=== PATIENT | female | born 1945 | race Hispanic/Latino ===

== ENCOUNTER 2021-10-25 21:37 | Emergency (ER) | payer OTHER ==
--- OUTSIDE RECORDS SUMMARY | 2021-10-25 21:40 | XMS REPORT | Clinical Summary ---
:1945 Author Organization [facility] MD [facility] Address [address] [place] [address] Care Team Providers Name Role Phone John Jacobo MD Primary Care Provider Natalya Cabrera MD Unavailable Nighat Mayen MD Unavailable Pete Funez MD Unavailable Allergies Active Allergy Reactions Severity Noted Date Comments Adhesive Tape-Silicones 10/17/2021 Medications Medication Sig Dispensed Refills Start Date End Date Status traMADol (ULTRAM) 50 Take 50 mg by 0 Active mg tablet mouth every 8 (eight) hours as needed. metFORMIN Take 1,000 mg by 0 Act dodie (GLUCOPHAGE) 1000 mg mouth daily with tablet breakfast. glimepiride (AMARYL) Take 4 mg by mouth 0 Active 4 mg tablet every morning before breakfast. HYDROcodone-acetamino Take 2 tablets by 30 tablet 0 10/18/2021 Active phen (Bristow) 5 mg-325 mouth every 6 mg per (six) hours as tabletIndications: needed for Malignant neoplasm of moderate pain. vagina ibuprofen Take 1 tablet (400 30 tablet 0 10/18/2021 Active (ADVIL,MOTRIN) 400 mg mg) by mouth every tabletIndications: 8 (eight) hours as Malignant neoplasm of needed for mild vagina pain. gabapentin Take 1 capsule 30 capsule 0 10/18/2021 Ac tive (Neurontin) 400 mg (400 mg) by mouth capsuleIndications: at bedtime. Malignant neoplasm of vagina lidocaine (XYLOCAINE) Apply topically to 30 g 0 Active 5% affected area(s) 4 ointmentIndications: (four) times a day Malignant neoplasm of as needed for mild vagina pain. Apply to open sores levoFLOXacin Take 1 tablet (750 10 tablet 0 10/18/2021 Active (Levaquin) 750 mg mg) by mouth tabletIndications: daily. Bacteriuria Active Problems Not on file Encounters Date Type Specialty Care Team Description 10/20/2021 Telephone Mariano Monisha Discharge C ricky Childers RN 10/17/2021 - Emergency Emergency Medicine Travon Vargas MD Mal ignant neoplasm of vagina; 10/18/2021 Bacteriuria 10/17/2021 Travel after 10/25/2020 Immunizations Name Administration Dates Next Due Moderna SARS-CoV-2 Vaccination 08/10/2021, 12/02/2020, 11/04 Medical History Medical History Date Comments Type 2 diabetes mellitus not insulin dep endent Obesity Hypertension Hyperlipidemia Social History Tobacco Use Types Packs/Day Years Used Date Never Assessed Sex Assigned at Date Recorded Female 09/06/2021 3:00 PM [employer] Job Start Date Occupation Industry Not on file Not on file Not on file COVID-19 Exposure Response Date Recorded In the last month, have you been in contact with No / Unsure 10/17/2021 9:10 PM [employer] someone who was confirmed or suspected to have Coronavirus / COVID-19? Obstetrics History Last Filed Vital Signs Vital Sign Reading Time Taken Comments Blood Pressure 154/71 10/18/2021 1:00 AM [employer] Pulse 87 10/18/2021 1:00 AM [employer] Temperature 36.5 C (97.7 F) 10/18/2021 1:00 AM [employer] Respiratory Rate 18 10/18/2021 1:00 AM [employer] Oxygen Saturation 97% 10/18/2021 1:00 AM [employer] Inhaled Oxygen Concentration - - Weight - - Height - - Body Mass Index - - Plan of Treatment Not on file Procedures Procedure Name Priority Date/Time Associated Comments Diagnosis XR CHEST 1 VW STAT 10/17/2021 10:08 Results fo r this PM [employer] procedure are i n the results section. URINALYSIS WITH Routine 10/17/2021 9:32 Results for this MICROSCOPIC IF PM [employer] procedure are in INDICATED the results section. URINALYSIS Now 10/17/2021 9:32 Results for this MICROSCOPIC PM [employer] procedure are i n the results section. after 10/25/2020 Results X-ray Chest 1 View (10/17/2021 10:08 PM [employer]) Specimen Impressions [id number] - 10/18/2021 6:46 AM [employer]IST 1. Small left pleural effusion and mild left basilar lung radiopacities, likely compressive atelectasis and/or pneumonia. 2. Left IJ Port-A-Cath with its tip in upper SVC. No complication. I personally reviewed these image(s) jon ng with the resident's/fellow's interpretations, certify that if a procedure was performed I was physically present, and agree with the final report. Narrative [id number] - 10/18/2021 6:46 AM RE[employer]ION [employer]IST FULL RESULT: Examination: XR Chest, 1 View Portable, 10/17/2021 10:08 PM Clinical History: Vulvar cancer. Indication: Baseline study. Comparison: None. Technique: Portable AP chest, 10/17/2021. Findings: A left IJ Port-A-Cath has its tip in the upper SVC. A small left pleural effusion and mild left lower lung radiopacities behind the heart are seen. The right lung is clear. The heart is at the upper wahl its are normal in size with a tortuous a kirk. Degenerative changes are present in the thoracic spine. Procedure Note Ajay Dwyer MD - 10/18/2021 FULL RESULT: Examination: XR Chest, 1 View Portable, 10/17/2021 10:08 PM Clinical History: Vulvar cancer. Indication: Baseline study. Comparison: None. Technique: Portable AP chest, 10/17/2021. Findings: A left IJ Port-A-Cath has its tip in the upper SVC. A small left pleural effusion and mild left lower lung radiopacities behind the heart are seen. The right lung is clear. The heart is at the upper limits are normal in size with a tortuous aorta. Degenerative changes are present in the thoracic spine. IMPRESSION: 1. Small left pleural effusion and mild left basilar lung radiopacities, likely compressive atelectasis and/or pneumonia. 2. Left IJ Port-A-Cath with its tip in upper SVC. No complication. I personally reviewed these image(s) jon azevedo with the resident's/fellow's interpretations, certify that if a procedure was performed I was physically present, and agree with the final report. Performing Organization Address City/State/ZIP Code Phon e Number [id number] Urinalysis with Microscopic (10/17/2021 9:32 PM RECEPTION SPECIALIST) Pathologist Sig nature UA WBC 2 0 - 2 /HPF [facility] UA RBC <1 0 - 2 /HPF [facility] UA Mucous NOT SEEN Not Seen-Trace /HPF [facility] UA Bacteria NOT SEEN NOT SEEN /HPF [facility] UA Squam Epi OCC None-Occasional [facility] Specimen Urine Narrative [facility] - 2 12:46 AM RECEPTION SPECIALIST Some reporting parameters within the Urinalysis test have changed due to the implementation of new in strumentation in the [facility], bernadine azevedo greater sensitivity of measurement. Urinalysis results reported by the [facility] using existing instrumentation, as well as Urinalysis t esting performed manually or by backup methodology at the [facility] will remain relatively unchanged. New reporting parameters and units will now be reported for all campuses. Performing Organization Address City/State/ZIP Code Phon e Number [facility] Unless otherwise noted, [place] [address] [place] all lab tests performed by: Division of Pathology and Laboratory Medicine [address] [place] [address] [place] (ABNORMAL) Urinalysis w/Microscopic if Indicated (10/17/2021 9:32 PM RECEPTION SPECIALIST) Pathologist Sig nature UA Color Yellow Straw-Yellow [facility] UA Appear Hazy (A) Clear [facility] UA Glucose NEG NEG mg/dL [facility] UA Bili NEG NEG [facility] UA Ketones NEG NEG mg/dL [facility] UA Spec Grav 1.026 1.003 - 1.035 [facility] UA Blood NEG NEG [facility] UA pH 5.0 5.0 - 9.0 [facility] UA Protein 30 (A) NEG mg/dL [facility] UA Urobilinogen NEG NEG [facility] UA Nitrite POS (A) NEG [facility] UA Leuk Est NEG NEG [facility] Specimen Urine Performing Organization Address City/State/ZIP Code Phon e Number [facility] Unless otherwise noted, [place] [address] [place] all lab tests performed by: Division of Pathology and Laboratory Medicine RodriguezNicko [place] after 10/25/2020 Insurance Payer Benefit Plan / Subscriber ID Effective Phone Address T ype Group Dates [facility] MEDIC[facility] [id number] 2021-Prese [address] [address] Medicare HEALTHCARE ADVANTAGE nt [place], [place] [id number] Care Teams Locker Operator Relationship Specialty Start Date End Date Glenn Jacobo, PCP - General Gynecological Oncology 08/22/21 [place] [address] Vicente Cabrera, PCP - External Primary Family Practice 08/22/21 MD Care Provider [address] [place] [address] [id number] Musa Mayen PCP - External Follow Hematology and Oncology MD Nighat [address] [place] [address] Davi Funez, PCP - External Follow Radiation Oncology 08/22/21 [address] [place] [address]
--- OUTSIDE RECORDS SUMMARY | 2021-10-25 21:41 | XMS REPORT | Continuity of Care Document ---
:1945 Author Organization [facility] t Address [address] [place] [address] Care Team Providers Name Role Phone [phone] Primary Care Physician Unavailable SYSTEM, PROVIDER NOT IN Attending Clinician Unavailable Mariano SORIANO, K Attending Clinician Unavailable Scott PATTERSON Attending Clinician SCOTT Attending Clinician Unavailable Payers Payer Name Policy Type Policy Effective Date Expiration Date Sour ce Number [facility] [id number] 2021 MD Emanuel orozco MEDICARE 00:00:00 [facility] MEDICARE [id number] 2021-[place] [address], [place] [address]Medicare Problems This patient has no known problems. Allergies, Adverse Reactions, Alerts This patient has no known allergies or adverse reactions. Social History Social Habit Start Date Stop Date Quantity Comments Source Exposure to Not sure MD Baez SARS-CoV-2 (event) Sex Ass[birth year] At [birth year] F MD Baez 00:00:00 00:00:00 Medications Ordered Filled Start Stop Current Ordering Indication Dosage Frequency Signature Comments Components Source Medication Medication Date Date Medication? Clinician (SIG) Name Name metFORMIN Yes 1000mg Take 1,000 MD (GLUCOPHAGE 1-12 mg by Anderso ) 1000 mg 01:39: mouth n tablet 44 daily with breakfast. glimepiride Yes 4mg Take 4 mg M D (AMARYL) 4 1-12 by mouth Stone so mg tablet 01:39: every n 44 morning before breakfast. traMADol Yes 50mg Take 50 mg MD (ULTRAM) 50 1-12 by mouth Emanuel rso mg tablet 01:39: every 8 n 44 (eight) hours as needed. HYDROcodone Yes Malignant 2{tbl} Take 2 MD -acetaminop 1-12 neoplasm of tablets by Anderso hen (Snyder) 00:00: vagina mouth n 5 mg-325 mg 00 every 6 per tablet (six) hours as needed for moderate pain. ibuprofen Yes Malignant 400mg Take 1 MD (ADVIL,MOTR 1-12 neoplasm of tablet Anderso [place]) 400 mg 00:00: vagina (400 mg) n tablet 00 by mouth every 8 (eight) hours as needed for mild pain. gabapentin Yes Malignant 400mg Take 1 MD (Neurontin) 1-12 neoplasm of capsule Anderso 400 mg 00:00: vagina (400 mg) n capsule 00 by mouth at bedtime. lidocaine Yes Malignant Apply MD (XYLOCAINE) 12 neoplasm of topically Anderso 5% ointment 00:00: vagina to n 00 affected area(s) 4 (four) times a day as needed for mild pain. Apply to open sores levoFLOXaci Yes Bacteriuria 750mg Take 1 MD n 1-12 tablet Anderso (Levaquin) 00:00: (750 mg) n 750 mg 00 by mouth tablet daily. Immunizations Ordered Immunization Filled Immunization Date Status Commen ts Source Name Name Jassia SARS-CoV-2 2021-08-10 Completed MD And erson Vaccination 00:00:00 Moderna SARS-CoV-2 2020-12-02 Completed MD And erson Vaccination 00:00:00 Moderna SARS-CoV-2 2020-11-04 Completed MD And erson Vaccination 00:00:00 Vital Signs Vital Name Observation Time Observation Value Comments Source Systolic blood pressure 2021-10-18 07:00:00 154 mm[Hg] MD Baez Diastolic blood pressure 2021-10-18 07:00:00 71 mm[Hg] MD Baez Heart rate 2021-10-18 07:00:00 87 /min MD Stone blankenship Body temperature 2021-10-18 07:00:00 36.5 Soha MD Natalya valdes Respiratory rate 2021-10-18 07:00:00 18 /min MD Natalya valdes Oxygen saturation in 2021-10-18 07:00:00 97 /min MD Baez Arterial blood by Pulse oximetry Procedures Procedure Date / Time Performed Performing Clinician Sourc e XR CHEST 1 VW 2021-10-18 04:08:28 Kelby Vargas MD URINALYSIS MICROSCOPIC 2021-10-18 03:32:00 Kelby Vargas MD derson URINALYSIS WITH MICROSCOPIC IF 2021-10-18 03:32:00 Srinath Vargsa MD INDICATED Encounters Start End Encounter Admission Attending Care Care Encounter Source Date/Time Date/Time Type Type Clinicians Facility Department ID 2021-10-09 Outpatient SYSTEM, [facility] [id number] 17:04:03 PROVIDER Anton o cortez 2021-09-04 Outpatient SYSTEM, [facility] [id number] 15:10:08 PROVIDER Anton o n 2021-10-17 2021-10-18 Emergency UR SCOTT, [facility] Emergency [id number] 20:02:00 01:40:00 KELBY toro Results Test Description Test Time Test Comments Results Result Comments Source Urinalysis with Microscopic 2021-10-18 06:46:24 Test Item Value Reference Range Interpretation Comme nts UA WBC (test code 2 See_Comment [Automate d message] The = 7904) system which ge nerated this result tra nsmitted reference range : 0 - 2 /HPF. The refer ence range was not u sed to interpret this result as normal/abnormal . UA RBC (test code <1 See_Comment [Automate d message] The = 7891) system which ge nerated this result tra nsmitted reference range : 0 - 2 /HPF. The refer ence range was not u sed to interpret this result as normal/abnormal . UA Mucous (test NOT SEEN Not Seen-Trace /HPF code = 7887) UA Bacteria (test NOT SEEN NOT SEEN /HPF code = 7870) UA Squam Epi OCC None-Occasional (test code = /HPF 7896) CHRISTOPHE (test code = Some reporting CHRISTOPHE) parameters within the Urinalysis test have changed due to the implementation of new instrumentation in the [facility] [place], allowing greater sensitivity of measurement. Urinalysis results reported by the [facility] using existing instrumentation, as well as Urinalysis testing performed manually or by backup methodology at the [facility] [place] will remain relatively unchanged. New reporting parameters and units will now be reported for all campuses. MD BaezUrinalysis w/Microscopic if [id number] 06:39:20 Test Item Value Reference Range Interpretation Comments UA Color (test code = 7877) Yellow Straw-Yellow UA Appear (test code = 7868) Hazy Clear A UA Glucose (test code = 7881) NEG NEG mg/dL UA Bili (test code = 7871) NEG NEG UA Ketones (test code = 7884) NEG NEG mg/dL UA Spec Grav (test code = 7894) 1.026 1.003-1.035 UA Blood (test code = 7872) NEG NEG UA pH (test code = 7909) 5.0 5.0-9.0 UA Protein (test code = 7890) 30 mg/dL NEG A UA Urobilinogen (test code = 7903) NEG NEG UA Nitrite (test code = 7888) POS NEG A UA Leuk Est (test code = 7886) NEG NEG Lab Interpretation (test code = Abnormal 53375-5) MD Baez
--- NOTE | 2021-10-26 00:01 | ER ---
Nurse's Notes [facility] Name: Shannen Cabrera Age: 76 yrs Sex: Female : 1945 Arrival Date: 10/25/2021 Time: 21:38 Bed 14 Private MD: Diagnosis: Strain of muscle, fascia and tendon at neck level, initial encounter;Contusion of left upper arm;Contusion of right upper arm;Contusion of left front wall of thorax, initial encounter;Contusion of right front wall of thorax, initial encounter Presentation: 10/25 21:48 Chief complaint: Chief complaint: Parent and/or Guardian states: fall from standing in [facility] shower tonight, no LOC, no blood thinners, complaining of R arm pain and R sided rib pain, pain gets worse when she breathes in. 21:54 Care prior to arrival: None. Mechanism of Injury: Fall from standing position. Trauma [facility] event details: Injury occurred: at home. Injury occurred: October 25, 2021 Injury occurred at: 21:00. 21:54 Acuity: BUD 3 [facility] 21:54 Method Of Arrival: Wheelchair [facility] 10/26 00:52 Coronavirus screen: Vaccine status: Patient reports receiving the 2nd dose of the covid sv1 vaccine. Ebola Screen: No symptoms or risks identified at this time. Initial Sepsis Screen: Does the patient meet any 2 criteria? No. Patient's initial sepsis screen is negative. Initial Sepsis Screen: Does the patient have a suspected source of infection? No. Patient's initial sepsis screen is negative. Initial Sepsis Screen: Does the patient have a suspected source of infection? No. Patient's initial sepsis screen is negative. Risk Assessment: Do you want to hurt yourself or someone else? Patient reports no desire to harm self or others. Onset of symptoms was October 23, 2021. Trauma Activation: Physician: ED Physician; Name: Dr. Diaz; Notified At: 21:52; Arrived At: 21:52 Physician: General Surgeon; Name: ; Notified At: 21:52; Arrived At: Physician: Radiology; Name: ; Notified At: 21:52; Arrived At: Physician: Respiratory; Name: ; Notified At: 21:52; Arrived At: Physician: Lab; Name: ; Notified At: 21:52; Arrived At: Historical: - Allergies: 00:53 No Known Allergies; sv1 - Immunization history: Last tetanus immunization: - up to date. - Social history:: Smoking status: Patient denies any tobacco usage or history of. - Family history:: not pertinent. - Hospitalizations: : No recent hospitalization is reported. Screenin/19 22:02 Abuse screen: Denies threats or abuse. Tuberculosis screening: No symptoms or risk sv1 factors identified. 10/26 00:49 Nutritional screening: No deficits noted. Fall Risk Fall in past 12 months (25 points). sv1 Secondary diagnosis (15 points) No IV (0 pts). Ambulatory Aid- None/Bed Rest/Nurse Assist (0 pts). Gait- Normal/Bed Rest/Wheelchair (0 pts) Mental Status- Oriented to own ability (0 pts). Primary Survey: 00:51 NO uncontrolled hemorrhage observed. A: Airway: patent. Breathing/Chest: Respiratory sv1 pattern: regular. Circulation: Pulses: palpable . Disability Alert. Reassessment Airway Airway Patent Breathing/Chest Respiratory pattern Regular Circulation Heart rhythm Sinus rhythm Disability Alert. 00:54 Exposure/Environment: There is no evidence of uncontrolled external bleeding. No sv1 obvious injuries are noted at this time. A warming method has been applied: A warm blanket has been provided to the patient. none. Assessment: 10/25 22:02 General: Appears in no apparent distress. General: Behavior is calm, cooperative, sv1 anxious. Pain: Denies pain. Vital Signs: 21:55 BP 172 / 68; Pulse 63; Resp 18; Pulse Ox 98% on R/A; Pain 9/10; sm5 10/26 00:49 BP 153 / 57; Pulse 60; Resp 14; Pulse Ox 98% ; Pain 3/10; sv1 [place] Coma Score: 10/25 21:55 Eye Response: spontaneous(4). Verbal Response: oriented(5). Motor Response: obeys sm5 commands(6). Total: 15. Trauma Score (Adult): 21:55 Eye Response: spontaneous(1); Verbal Response: oriented(1); Motor Response: obeys sm5 commands(2); Systolic BP: > 89 mm Hg(4); Respiratory Rate: 10 to 29 per min(4); [place] Score: 15; Trauma Score: 12 ED Course: 21:38 Patient arrived in ED. [facility] 21:50 Alicia Valle, RN is Primary Nurse. [facility] 21:50 Tristan Diaz MD is Attending Physician. rn 21:55 Froylan Springer, RN is Primary Nurse. sv1 21:55 Triage completed. sm5 22:02 Patient has correct armband on for positive identification. Bed in low position. Call sv1 light in reach. Side rails up X2. Adult w/ patient. 22:49 CT Head C Spine In Process Unspecified. EDMS 23:11 XRAY Ribs BILATERAL w/chest In Process Unspecified. EDMS 23:11 XRAY Humerus LEFT In Process Unspecified. EDMS 23:11 XRAY Humerus RIGHT In Process Unspecified. EDMS 10/26 00:49 No provider procedures requiring assistance completed. Patient did not have IV access sv1 during this emergency room visit. 00:51 Patient maintains SpO2 saturation greater than 95% on room air. sv1 00:53 Arm band placed on right wrist. sv1 Administered Medications: No medications were administered Outcome: 00:00 Discharge ordered by . rn 00:49 Discharged to home via wheelchair, with family. sv1 00:49 Condition: good 00:49 Discharge instructions given to patient, family. 00:51 dischargedPatient's length of stay extended due to sv1 00:56 Patient left the ED. sv1 Signatures: Dispatcher [employer] EDTristan Marinelli MD MD rn Clark, Kasey [facility] Alicia Valle, RN BO [facility] Froylan Springer, RN RN sv1 Corrections: (The following items were deleted from the chart) 10/25 21:55 21:48 Chief complaint: [place] [id number]
--- NOTE | 2021-10-26 00:01 | EDPHYS ---
Physician Documentation [facility] Name: Shannen Cabrera Age: 76 yrs Sex: Female : 1945 Arrival Date: 10/25/2021 Time: 21:38 Bed 14 Private MD: ED Physician Tristan Diaz HPI: 10/25 22:00 This 76 yrs old Female presents to ER via Wheelchair with complaints of Fall rn Injury. 22:00 Details of fall: The patient fell from an upright position. Onset: The symptoms/episode rn began/occurred just prior to arrival. Associated injuries: The patient sustained neck injury, injury to the chest, Left arm and right arm. Severity of symptoms: At their worst the symptoms were mild, in the emergency department the symptoms are unchanged. The patient has not experienced similar symptoms in the past. The patient has not recently seen a physician. Patient reports slipped while in shower, daughter was outside of shower when it happened, no loss of consciousness, does not take any blood thinners. Reports remembers all events and details. Reports pain to neck both upper arms and bilateral ribs.. Historical: - Allergies: 10/26 00:53 No Known Allergies; sv1 - Immunization history: Last tetanus immunization: - up to date. - Social history:: Smoking status: Patient denies any tobacco usage or history of. - Family history:: not pertinent. - Hospitalizations: : No recent hospitalization is reported. ROS: 10/25 22:00 Constitutional: Negative for fever, chills, and weight loss, Eyes: Negative for injury, rn pain, redness, and discharge, Neck: Positive for neck pain Cardiovascular: Positive bilateral rib pain Respiratory: Negative for shortness of breath, cough, wheezing, and pleuritic chest pain, Abdomen/GI: Negative for abdominal pain, nausea, vomiting, diarrhea, and constipation, Back: Negative for injury and pain, MS/Extremity: Positive for injury and pain to both upper arms Skin: Negative for injury, rash, and discoloration, Neuro: Negative for headache, weakness, numbness, tingling, and seizure. Exam: 22:00 Constitutional: This is a well developed, well nourished patient who is awake, alert, rn and in no acute distress. Head/Face: Normocephalic, atraumatic. Eyes: Periorbital areas with no swelling, redness, or edema. Chest/axilla: Mild tenderness bilateral upper lateral ribs into axilla without ecchymosis or crepitus Cardiovascular: Regular rate and rhythm. No pulse deficits. Respiratory: No increased work of breathing, no retractions or nasal flaring. Abdomen/GI: Soft, non-tender Skin: Warm, dry MS/ Extremity: Pulses equal, no cyanosis. Neurovascular intact. Full, normal range of motion. Equal circumference. Mild tenderness bilateral upper humerus without ecchymosis or deformity. Able to use both arms to get into bed. Full range of motion bilateral hips and knees. No tenderness or deformity in legs or distal arms Neuro: Awake and alert, GCS 15, oriented to person, place, time, and situation. Cranial nerves II-XII grossly intact. Motor strength 5/5 in all extremities. Sensory grossly intact. Cerebellar exam normal. Normal gait. Vital Signs: 21:55 BP 172 / 68; Pulse 63; Resp 18; Pulse Ox 98% on R/A; Pain 9/10; sm5 10/26 00:49 BP 153 / 57; Pulse 60; Resp 14; Pulse Ox 98% ; Pain 3/10; sv1 [place] Coma Score: 10/25 21:55 Eye Response: spontaneous(4). Verbal Response: oriented(5). Motor Response: obeys sm5 commands(6). Total: 15. Trauma Score (Adult): 21:55 Eye Response: spontaneous(1); Verbal Response: oriented(1); Motor Response: obeys sm5 commands(2); Systolic BP: > 89 mm Hg(4); Respiratory Rate: 10 to 29 per min(4); Enedelia Score: 15; Trauma Score: 12 MDM: 21:50 Patient medically screened. rn 23:58 Differential diagnosis: closed head injury, contusion, fracture, sprain, strain. Data rn reviewed: vital signs, nurses notes, radiologic studies, CT scan, plain films, and as a result, I will discharge patient. Counseling: I had a detailed discussion with the patient and/or guardian regarding: the historical points, exam findings, and any diagnostic results supporting the discharge/admit diagnosis, lab results, radiology results, the need for outpatient follow up, to return to the emergency department if symptoms worsen or persist or if there are any questions or concerns that arise at home. Special discussion: I discussed with the patient/guardian in detail that at this point there is no indication for admission to the hospital. It is understood, however, that if the symptoms persist or worsen the patient needs to return immediately for re-evaluation. 23:58 ED course: No acute findings on xrays/ct head/cspine. Will dc home. . rn 10/25 21:58 Order name: CT Head C Spine rn 10/25 21:58 Order name: XRAY Ribs BILATERAL w/chest rn 10/25 21:58 Order name: XRAY Humerus LEFT rn 10/25 21:58 Order name: XRAY Humerus RIGHT rn Administered Medications: No medications were administered Disposition Summary: 10/26/21 00:00 Discharge Ordered Location: Home rn Problem: new rn Symptoms: have improved rn Condition: Stable rn Diagnosis - Strain of muscle, fascia and tendon at neck level, initial encounter rn - Contusion of left upper arm rn - Contusion of right upper arm rn - Contusion of left front wall of thorax, initial encounter rn - Contusion of right front wall of thorax, initial encounter rn Followup: rn - With: Private Physician - When: As needed - Reason: Recheck today's complaints, Re-evaluation by your physician Discharge Instructions: - Discharge Summary Sheet rn - Contusion rn - Rib Contusion rn - Blunt Chest Trauma rn - Cervical Strain and Sprain Rehab-SportsMed rn Forms: - Medication Reconciliation Form rn - Thank You Letter rn - Antibiotic 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
[2021-10-26 01:20] VITALS: O2SAT 98
[2021-10-26 01:21] VITALS: BP 153/57
--- NOTE | 2021-10-26 12:33 | RAD REPORT ---
EXAM DESCRIPTION: CT - Head C Spine Mpr Wo Con - 10/26/2021 7:05 am CLINICAL HISTORY: 76 years, Female, fall, neck pain COMPARISON: None. FINDINGS: Multiple transaxial tomograms of the brain were obtained from the base of the skull to the vertex without contrast. 2-D multiplanar reformats and the coronal and sagittal plane were performed and reviewed. Multiple axial CT images through the cervical spine were obtained at 2 mm slice thickness at 2 mm int erval reconstruction. In addition 2-D multiplanar reformats and the sagittal coronal plane were perfo rmed and reviewed. This exam was performed according to our departmental dose-optimization protocol, which includes auto mated exposure control, adjustment of the mA and/or kV according to patient size and/or use of iterat dodie reconstruction technique. CT head: Brain parenchyma demonstrate mild prominence of the sulci and gyri are corresponding to mild cerebral and cerebellar atrophy. There is minimal periventricular white matter changes of microvascu lar ischemia. There is no midline shift and/or mass effect. There is no evidence for acute intracrani al hemorrhage. There are bilateral punctate areas of calcification within the basal ganglia Lateral ventricles and cisterns displace normal appearance. No intra or extra axial fluid collections were seen. The calvarium is intact with no evidence for fracture. The visualized portions of the paranasa l sinuses and orbits demonstrate to be clear. CT cervical spine: The alignment, vertebral body heights, and disc spaces are normal. There is no e vidence of fracture or subluxation. There is degenerative disc disease with decreased intervertebral disc height, anterior spondylosis and posterior osteophyte complex at C5/C6 C7/T1. The spinal canal d emonstrate no evidence for significant stenosis. Neural foramina demonstrate to be unremarkable. Ther e are uncovertebral degenerative changes C2-C6 slightly pronounced left side than right. There is no prevertebral soft tissue swelling. The visualized portions of the lung apexes demonstrate to be unr emarkable. Incidentally is noted presence of a left IJ central line. Sagittal coronal reformatted tony ges demonstrate no subluxation or bony abnormalities. IMPRESSION: No CT evidence for acute intracranial hemorrhage noted the. Mild brain atrophy with minimal periventricular white matter changes of microvascular ischemia. No evidence for acute fracture or subluxation of the cervical spine. Degenerative disc disease at C5/C6 C7/T1. Electronically signed by: Krish Bailey MD 10/25/2021 11:07 PM CAR OILER Due to temporary technical issues with the PACS/Fluency reporting system, reports are being signed by the in house radiologists without review as a courtesy to insure prompt reporting. The interpreting radiologist is fully responsible for the content of the report.
--- NOTE | 2021-10-26 15:06 | RAD REPORT ---
EXAM DESCRIPTION: RAD - Humerus Left - 10/25/2021 11:11 pm CLINICAL HISTORY: 76 years, Female, PAIN COMPARISON: None. FINDINGS: 2 X-ray views of the left humeral (frontal lateral views) were performed. No areas of acute bony injuries were demonstrated. No gross articular or soft tissue abnormality is identified. There are no gross intraosseous lesions. No periosteal reaction were seen. IMPRESSION: Unremarkable left humerus examination. Electronically signed by: Krish Bailey MD 10/25/2021 11:36 PM ROCK MASON APPRENTICE Due to temporary technical issues with the PACS/Fluency reporting system, reports are being signed by the in house radiologists without review as a courtesy to insure prompt reporting. The interpreting radiologist is fully responsible for the content of the report.
--- NOTE | 2021-10-26 15:14 | RAD REPORT ---
EXAM DESCRIPTION: RAD - Humerus Right - 10/25/2021 11:11 pm CLINICAL HISTORY: 76 years, Female, PAIN Humerus Right COMPARISON: None. FINDINGS: 2 X-ray views of the right humerus (frontal lateral views) were performed. No areas of acute bony injuries were demonstrated. No gross articular or soft tissue abnormality is identified. There are no gross intraosseous lesions. No periosteal reaction were seen. IMPRESSION: Unremarkable examination of the right humerus. Electronically signed by: Krish Bailey MD 10/25/2021 11:37 PM OFFICE SUPPORT Due to temporary technical issues with the PACS/Fluency reporting system, reports are being signed by the in house radiologists without review as a courtesy to insure prompt reporting. The interpreting radiologist is fully responsible for the content of the report.
--- NOTE | 2021-10-26 15:15 | RAD REPORT ---
EXAM DESCRIPTION: RAD - Ribs Bilateral W/Chest - 10/25/2021 11:11 pm CLINICAL HISTORY: 76 years, Female, BLUNT CHEST TRAUMA COMPARISON: None. FINDINGS: Four X-ray views of the right and left ribs were performed. No prior films are available a t this time for comparison. The cardiomediastinal silhouette demonstrate to be unremarkable. The heart is not enlarged. The tho racic aorta is mildly tortuous with intimal consultation. There is a left IJ venous port in place. Co stophrenic angles are sharp. Calcified granuloma within the left upper lung zone. Evaluation of the lungs demonstrate no evidence for pneumothorax. The bilateral ribs demonstrate to b e intact with no evidence for significant cortical breakthrough that will suggest fracture. There is no evidence for pleural effusion and/or abnormal areas of airspace opacity that will suggest lung con tusion. The rest of the visualized portions of the soft tissue and bony structures demonstrate to be unremarkable. IMPRESSION: No evidence of rib fracture. No evidence for pneumothorax. Calcified granuloma within the left upper lung zone. Electronically signed by: Krish Bailey MD 10/25/2021 11:36 PM SATELLITE MANAGER Due to temporary technical issues with the PACS/Fluency reporting system, reports are being signed by the in house radiologists without review as a courtesy to insure prompt reporting. The interpreting radiologist is fully responsible for the content of the report.
== END 2021-10-26 00:56 | disposition home or self-care (01) ==
LOC: ER 21:37
DX: S16.1XXA Strain of muscle, fascia and tendon at neck level, initial encounter (principal); S20.213A Contusion of bilateral front wall of thorax, initial encounter; S40.022A Contusion of left upper arm, initial encounter; S40.021A Contusion of right upper arm, initial encounter; W18.2XXA Fall in (into) shower or empty bathtub, initial encounter; Y93.E1 Activity, personal bathing and showering
CPT/HCPCS: 70450; 71111; 72125; 99284